=== PATIENT | female | born 1985 | race Caucasian/White ===

== ENCOUNTER → 2018-07-13 13:49 | Outpatient (CLI) | payer BC, SELFPAY ==
[2016-09-05 07:31] VITALS: BMI 47.6
[2018-07-17 16:30] LABS: HPV APTIMA, High Risk Negative (Negative)
== END ==
PROVIDERS: Referring Provider Obstetrics & Gynecology; Visit Provider Obstetrics & Gynecology
DX: Z12.4 Encounter for screening for malignant neoplasm of cervix (principal)
CPT/HCPCS: 87624; 88175; G0145

== ENCOUNTER → 2022-08-08 | Outpatient (CLI) | payer OTHER, SELFPAY ==
[2022-08-12 10:35] LABS: Hematocrit 43.1 % (37-47); Hemoglobin 14.4 g/dL (12.0-15.0); Mean Corp Hgb Conc 33.4 g/dL (32-36); Mean Corpuscular Hgb 29.8 pg (27.0-32.0); Mean Corpuscular Volume 89.2 fL (81-99); Mean Platelet Vol. 9.6 fl (6.2-12.0); Platelet Count 279 K/mm3 (150-450); RBC Distribution Width SD 42.6 fl (35.1-43.9); Red Blood Count 4.83 M/mm3 (4.2-5.4); White Blood Count 5.9 K/mm3 (4.4-11.0)
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
[2022-08-15 10:23] LABS: Internal QC Validated? YES +Cl - CLEAR BKGD; Pregnancy, Urine Negative Negative
== END | disposition home or self-care (01) ==
LOC: SDC 08-15 09:35 → PAT 09-03 16:46
PROVIDERS: Anesthesiology; Referring Provider Student in an Organized Health Care Education/Training Program; Visit Provider Student in an Organized Health Care Education/Training Program
DX: Z01.812 Encounter for preprocedural laboratory examination (principal)
CPT/HCPCS: 36415; 81025; 85027; 86850; 86900; 86901; J7120

== ENCOUNTER 2022-11-07 06:08 | Day surgery (SDC) | payer OTHER, SELFPAY ==
[2022-11-07] VITALS (8 sets, daily range): BP systolic 102–152; BP diastolic 62–95; PULSE 70–91; RESP 16–18; TEMP 36.6–37.3; O2SAT 92–98; BMI 48.9
--- NOTE | 2022-11-07 | EMB_PTH ---
PATIENT: MARIS WINKLER [place] [facility] [place][id number] AGE/SX: 37/F ROOM: RE11/07/[address]: Dr. Cristal Rivera, : 1985 BED: DIS: 11/07/2022 SPEC #: [id number] RECD: 11/07/22 12:35 STATUS: DIANNE MANUEL #: [id number] JARRELL: 11/07/22 00:[address]: Cristal Rivera DEPT: SURGICAL PATHOLOGY RECD BY: Po Wagner Tissues: B - Fallopian tube A - Endometrium, NOS Procedures: Surgery Specimen Level II Surgery Specimen Level IV HEADER OPERATION: Hysteroscopy, D & C Chelsi, IUD removal PRE-OP DIAGNOSIS: Heavy menstrual bleeding, sterilization TISSUE SUBMITTED: A ? Endometrial curettings, B ? Bilateral fallopian tubes MICROSCOPIC DIAGNOSIS A. 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 Mild chronic endometritis. Fragments of endocervix with chronic inflammation. B. Right and left fallopian tubes, salpingectomies: Complete cross-sections of two fallopian tubes with no pathologic change. AM:tam 11/08/2022 MICROSCOPIC DESCRIPTION Slides are reviewed. GROSS DESCRIPTION A - Received in fixative is one container labeled with the patient's name and designated endometrial curettings. The specimen consists of multiple fragments of hemorrhagic soft tissue mixed with mucoid tissue that in aggregate measure 5.0 x 3.0 x 0.3 cm. The specimen is totally submitted in two cassettes. B - Received in fixative is one container labeled with the patient's name and designated bilateral fallopian tubes. The specimen consists of bilateral fallopian tubes including fimbrial ends measuring 4.5 cm in length and 0.6 cm in diameter and 4.0 cm in length and 0.6 cm in diameter. The fallopian tubes are not identified as right or left. Sections reveal unremarkable cut surfaces. Collar Closer Lockstitch sections are submitted in two cassettes with each cassette containing one fallopian tube. / SJ:tam 11/07/2022 TC:3 CPT: 10017 x2, 22061
[2022-11-07] MEDS: Lactated Ringers 1,000 ML 15 ML IV ×2 (06:39→08:01)
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
[2022-11-07 07:18] LABS: Internal QC Validated? YES +Cl - CLEAR BKGD; Pregnancy, Urine Negative Negative
--- NOTE | 2022-11-07 07:28 | PCM.OPRPT ---
Report of Operation Date of Procedure: 11/07/22 Pre-Operative Diagnosis: Abnormal uterine bleeding, Desires permanent sterilization Post-Operative Diagnosis: Abnormal uterine bleeding, Desires permanent sterilization Surgery/Procedure Performed:: Removal of intrauterine device, hysteroscopy, dilation and curettage, endometrial ablation. Bilateral laparoscopic salpingectomy. Description of Surgical Findings:: Normal-appearing external genitalia. Minimal uterine descensus. Intrauterine device strings noted at cervical os. IUD removed in toto. Normal-appearing endometrial cavity with thickened lining. Normal-appearing bilateral fallopian tubes and ovaries. Some left colonic adhesions left pelvic sidewall. Large amount of abdominal visceral fat surrounding colon and peritoneum. Surgeon: Cristal Rivera racking technician: Kenn Davila Type of Anesthesia: General Specimen's removed: Endometrial curettings, bilateral Fallopian tubes Estimated Blood Loss (mL): 10 cc Fluids Replaced: 1100cc Description of Procedure: Indications/Risks/Benefits: 37-year-old female with heavy menstrual bleeding and desire for permanent sterilization plan for hysteroscopy, dilation curettage, endometrial ablation, bilateral laparoscopic salpingectomy.? All risk, benefits, alternatives discussed with patient.? Risk include but are not limited to: Risk of bleeding plan transfusion, infection, injury to surrounding tissue including bowel/bladder/major abdominal vessels, VTE, ICU admission.? Patient aware and consented.? Procedure: Patient taken the operating room and placed under general anesthesia. Patient placed in the dorsal lithotomy position and prepped and draped in the usual sterile fashion. Ambrocio catheter placed. Weighted speculum placed in the posterior cul-de-sac and Hammer retractor used to visualize the cervix. Anterior lip of the cervix grasped with single-tooth tenaculum. IUD strings visualized and grasped. IUD removed. Cervix sequentially dilated. Hysteroscope placed through the cervical canal and inspection of the endometrial cavity was completed. Uterus sounded to 10 cm, cervical length 5.5 cm. Endometrial curetting was completed in 360 degree manner. Chelsi device was opened and placed in the endometrial cavity. Passed cavity assessments. Ablation was completed. Chelsi device removed. Sargis manipulator placed and single-tooth tenaculum removed. Weighted speculum removed. Gloves were changed and attention turned to the anterior abdominal wall. Infraumbilical incision made with scalpel. Long trocar placed under direct visualization. Abdomen insufflated. Right and left lower quadrant incisions made and trocars placed under direct visualization. Findings noted above. Left fallopian tube was grasped at the fimbriated end and removed along the mesosalpinx using the LigaSure device to the level of the cornua. Fallopian tube removed through the right lower quadrant 8 mm trocar. Right fallopian tube grasped at the fimbriated end and removed along the mesosalpinx using the LigaSure device to the level of the cornea. Fallopian tube removed through the right lower quadrant port. Hemostasis confirmed. Abdomen desufflated and trocars removed. Skin closed with subcuticular stitch and skin glue. Sargis manipulator removed and cervical hemostasis confirmed. Ambrocio catheter removed. At the end of the procedure all needle, lap, sponge counts were correct. UOP: 100cc yellow urine Admit VTE Documentation VTE Mechan Device Prophylaxis: SCD's
--- NOTE | 2022-11-07 07:32 | PCM.DC ---
Discharge Instructions Diet Discharge Diet: No restrictions Activity Discharge Activity: Return to Normal Activity and May Shower May resume sexual activity in: 2 weeks Weight Bearing Status: Weight bearing as tolerated Lifting Restrictions: No greater than 15 pounds Dressing / Incision Call your doctor if your incision/area has: Continuous Slow Oozing, Increased Pain/ Swelling, Increased Redness and Foul Smelling Discharge Call your doctor if you observe: Fever of 101 or Higher, Inability to urinate, Using more than 1 pad per hour, Shortness of breath, Chest pain, Calf discomfort and Uncontrolled pain Cleanse incision/area with: Soap & Water and Keep Dressing Clean & Dry Follow Up Care Please Follow Up With: Cristal Rivera DO When: 2 weeks post operative visit. Test Results: Test results from this visit will be discussed in further detail at your follow-up appointment, if applicable. Discharge Plan Admission Primary Reason for Your Visit: Ablation, Tubal ligation Attending Provider: Cristal Rivera Primary Care Provider: NATHAN MORILLO Discharge Orders/Prescriptions Prescriptions: New oxycodone-acetaminophen [Endocet] 5-325 mg tablet 1 tab PO Q6H PRN (Reason: pain) 3 Days Qty: 12 0RF Continued zonisamide 25 mg capsule 75 mg PO QHS cetirizine 10 mg tablet 10 mg PO DAILY magnesium 200 mg tablet 400 mg PO DAILY C 5115-[id number]-Hykh Hips Capsule 1 cap PO DAILY cholecalciferol (vitamin D3) 125 mcg (5,000 unit) capsule 125 mcg PO DAILY riboflavin (vitamin B2) 100 mg tablet 100 mg PO DAILY tizanidine 4 mg tablet 4 mg PO QHS PRN (Reason: Spasms) Label Comments: takes 07/17-1/2 trazodone 50 mg tablet 50 mg PO QHS PRN (Reason: Sleep) Label Comments: 1/2-1 tab naproxen sodium 550 mg tablet 550 mg PO Q12H PRN (Reason: Pain) eletriptan 40 mg tablet 40 mg PO PRN PRN (Reason: Migraine Headache) ondansetron HCl 4 mg tablet 4 mg PO PRN PRN (Reason: Nausea) venlafaxine 75 mg Tablet 75 mg PO QHS cholestyramine (with sugar) 4 gram Powder In Packet 4 g PO PRN PRN (Reason: Stomach Upset) Rx Instructions: administer w/meal; avoid other meds within 1hr before or 4-6hr after dose Discontinued Liletta 20.4 mcg/24 hrs (8 yrs) 52 mg intrauterine device 1 device intrauterine ONCE Rx Instructions: as a single dose Referrals / Follow Up: NATHAN MORILLO [Other] Disposition Disposition (needs filled in before D/C Order can be placed): Home, Self Care
== END 2022-11-07 11:06 | disposition home or self-care (01) ==
LOC: SDC 06:08 → AC 06:09
PROVIDERS: Anesthesiology; Referring Provider Student in an Organized Health Care Education/Training Program; Visit Provider Student in an Organized Health Care Education/Training Program
PROC: 0U5B8ZZ Destruction of Endometrium, Via Natural or Artificial Opening Endoscopic (ICD-10-PCS; CPT 58558; principal; 2022-11-07 07:15)
DX: Z30.2 Encounter for sterilization (principal); N71.1 Chronic inflammatory disease of uterus; N72 Inflammatory disease of cervix uteri; N93.9 Abnormal uterine and vaginal bleeding, unspecified; G43.909 Migraine, unspecified, not intractable, without status migrainosus; F32.A Depression, unspecified; M79.7 Fibromyalgia; F41.9 Anxiety disorder, unspecified; Z86.718 Personal history of other venous thrombosis and embolism; Z79.899 Other long term (current) drug therapy
CPT/HCPCS: 58661; 58301; 58563; 00840; 81025; 88302; 88305; J7120; J2405